=== PATIENT | male | born 1985 | race Caucasian/White ===

== ENCOUNTER 2023-12-02 12:33 | Inpatient (IN) | payer BC, SELFPAY ==
[2023-12-02] VITALS (14 sets, daily range): BP systolic 140–210; BP diastolic 76–106; PULSE 112–129; RESP 16–29; TEMP 36.6–37.2; O2SAT 98–100; BMI 33.7
--- NOTE | ~2023-12-02 | CT_ITS ---
EXAMINATION: CT abdomen pelvis w con DATE: 12/02/2023 15:23 INDICATION: Left lower quadrant abdominal pain TECHNIQUE: Computed tomography (CT) of the abdomen and pelvis was performed with 100 mL Omnipaque-350 intravenous contrast. Automated exposure control and iterative reconstruction technique were employe d. The dose-length product was 1294.79 mGy-cm. COMPARISON: None. FINDINGS: Lower thorax: Unremarkable Liver: Enlarged. Fatty infiltrated. Biliary/Gallbladder: Gallbladder is normal. No bile duct dilation. Pancreas: Fluid and fat stranding surrounding the pancreas. Spleen: Normal. Adrenals:No mass. Kidneys: No suspicious mass, obstructing stone, or hydronephrosis. GI tract: No small or large bowel dilation. Normal appendix. Diverticulosis without diverticulitis. Mesentery/Peritoneum: No mass or free air. Upper abdominal and peripancreatic mesenteric stranding wi th fluid extending along the anterior leaflet of the left lateral conal fascia. Prominent upper abdom inal mesenteric lymph nodes. Retroperitoneum: No mass. Pelvis: Pelvic organs are within normal limits. Soft Tissues: Soft tissues and body wall unremarkable. Bones: No acute osseous finding. IMPRESSION: Hepatomegaly with steatosis. Acute interstitial pancreatitis. Reviewed, dictated and finalized at location K.
[2023-12-02 13:06] LABS: Basophils Absolute Auto 0.1 K/mm3 (0.0-0.1); Basophils Percent Auto 0.5 % (0.2-1.2); Hematocrit 44.8 % (42.0-52.0); Hemoglobin 15.8 g/dL (14.0-18.0); Immature Granulocyte Absolute 0.24 K/mm3 (0.00-0.031); Immature Granulocyte Percent A 1.6 % (0-0.5); Lymphocytes Absolute Auto 2.01 K/mm3 (0.9-3.2); Lymphocytes Percent Auto 13.2 % (18.3-44.2); Mean Corpuscular HGB Conc 35.3 g/dl (32-36); Mean Corpuscular Hemoglobin 32.1 pg (26-34); Mean Corpuscular Volume 91.1 fl (80-100); Mean Platelet Volume 11.5 fl (7.4-10.4); Monocytes Absolute Auto 1.6 K/mm3 (0.1-0.6); Monocytes Percent Auto 10.6 % (2.6-8.5); Neutrophils Absolute Auto 11.3 K/mm3 (1.3-6.7); Neutrophils Percent Auto 74.1 % (45.5-73.1); Platelet Count Result 160 k/mm3 (150-375); Red Blood Count 4.92 M/mm3 (4.6-6.20); Red Cell Distribution Width 12.9 % (11.5-14.5); White Blood Count 15.3 K/mm3 (4.5-10.0)
[2023-12-02] MEDS: ONDANSETRON INJ 4 MG/2 ML VIAL IV PUSH (14:15)
[2023-12-02] MEDS: SODIUM CHLORIDE 0.9% IV 2,000 ML 999 ML IV CONT (14:16)
[2023-12-02 14:27] LABS: Add Urine Microscopic? YES; Appearance Urine Cloudy (Clear); Bacteria Urine None Seen /hpf; Bilirubin Urine Negative (Negative); Blood Urine 2+ (Negative); Color Urine Yellow (Yellow); Glucose Urine UA 3+ mg/dL (Negative); Ketones Urine 4+ mg/dL (Negative); Leukocyte Esterase Ur Negative LEU/UL (Negative); Need Manual Microscopic Reviewed; Nitrate Urine Negative (Negative); Non Pathogenic Casts >20; Protein Urine 3+ mg/dL (Negative); Specific Grav Ur 1.035 (1.001-1.035); Squamous Epithelial Cell Urine Occasional /hpf (Few); WBC Urine 0-5 /hpf (0-3); pH Urine 5.5 (5.0-9.0)
[2023-12-02 15:20] LABS: Estimated CRCL calculation 144 ml/min; Estimated Glomerular Filt Rate > 60
[2023-12-02 15:49] LABS: Alanine Aminotransferase 44 U/L (6-50); Albumin Level 4.6 g/dL (3.5-5.1); Alkaline Phosphatase 109 U/L (38-126); Aspartate Amino Transferase 27 U/L (17-59); Bilirubin,Total 1.1 mg/dL (0.2-1.3); Blood Urea Nitrogen 13 mg/dL (9-20); Calcium 11.3 mg/dL (8.4-10.2); Carbon Dioxide < 5 mmol/L (22-30); Chloride 99 mmol/L (98-107); Estimated CRCL calculation 117 ml/min; Estimated Glomerular Filt Rate > 60; Glucose 404 mg/dL (65-110); Lipase 518 U/L (23-300); Potassium 5.4 mmol/L (3.4-5.0); Sodium 130 mmol/L (137-145)
[2023-12-02 16:26] LABS: Fractional Inspired Oxygen 21 %; HCO3 VBG 6.5 mEq/l (24.0-30.0); PO2 VBG 85.5 mmHg (35.0-45.0)
[2023-12-02 16:32] LABS: Device ROOM AIR; PCO2 VBG 15.2 mmHg (42.0-48.0); pH VBG 7.246 (7.300-7.400)
[2023-12-02 16:41] LABS: Lactic Acid Reflex 1.1 mmol/L (0.7-2.0)
[2023-12-02] MEDS: SODIUM CHLORIDE 0.9% IV 1,000 ML 999 ML IV CONT (16:42)
--- NOTE | 2023-12-02 17:18 | ED.ABDPAIN ---
HPI - Abdominal Pain General Chief Complaint: Abdominal Pain Stated Complaint: abd pain Time Seen by Provider: 12/02/23 13:07 History of Present Illness HPI narrative: This is a 38-year-old male, with no known significant past medical history, presents to the emergency department complaining of epigastric abdominal pain described as sharp burning for the past 2 days. He states this radiates somewhat to the left lower abdomen that was not associated with any nausea or vomiting. He states he had a normal appearing stool 2 days ago with some bright red blood but has not had any bleeding since then. Yesterday, he states he had a fever of 100.8. He denies any known sick contacts recent travel. He denies dysuria, urinary frequency, cough, chest pain or loss of consciousness. Related Data Home Medications Medication Instructions Recorded Confirmed No Home Medications 12/02/23 12/02/23 Allergies Allergy/AdvReac Type Severity Reaction Status Date / Time No Known Allergies Allergy Verified 12/02/23 12:43 Review of Systems Review of Systems: All systems reviewed & are unremarkable except as noted in HPI and below PMFSH Past Medical History Medical History Hypertension Surgical History Surgical History No significant past surgical history Family History Family History Father Hypertension Mother Hypertension Sibling Asthma Patient's brother is in good health Social History Social History Smoking status: Current every day smoker Tobacco type: e-cigarettes/vaping Second hand tobacco smoke exposure: Yes Alcohol intake: current Substance use: never Do You Feel Safe in your Home?: Yes Lack of Transportation: No Lack of Food: Never True Current Housing: I Have Housing Concerned About Future Housing: No Difficulty Paying Gas/Electric Bills: No Difficulty Paying for Meds: No Currently Unemployed: No Education: High School Diploma/GED Difficulty w/ Childcare or Family Care: No Spiritual care concerns: No Exam Narrative: GENERAL: Well-developed, well-nourished, and in no acute distress. Appears uncomfortable HEAD: Normocephalic, atraumatic. EYES: PERRLA and EOMI. CHEST: Tachypneic Clear to auscultation. No respiratory distress. No wheezes rales or rhonchi HEART: Regular rate and rhythm. No murmur heard. Normal peripheral pulses. ABDOMEN: Soft, tender palpation in the epigastrium and left lower quadrant, nondistended, normal active bowel sounds. No CVA tenderness to palpation EXTREMITIES: Normal range of motion. No edema. SKIN: Warm, dry, no rash. NEURO: Alert and oriented x3. No focal deficit. Moving all 4 limbs spontaneously PSYCH: Normal mood and affect. Course Course Emergency Course: 17:30 - White blood cell count elevated to 15, CBC otherwise unremarkable. Chemistries demonstrate sodium of 130, bicarb less than 5 and elevated glucose of 404. ABG demonstrates changes consistent with metabolic acidosis with a pH of 7.246, bicarb of 6.5 and pCO2 of 15.2. Lactic acid within normal limits at 1.1. UA demonstrates ketones concerning for kidney area. Beta hydroxybutyrate pending. I suspect DKA. Comments from lab regarding the patient's blood work (which were delayed) included a like hemic appearance. I suspect hypertriglyceridemia, likely causing the patient's pancreatitis and contributing to his DKA. The patient was started on insulin drip and given 3 L of IV fluid. On re-evaluation, the patient states his abdominal pain is improved after pain medications. I discussed the patient with inspector grain mill products, Dr. Reyez and hospitalist YARD FOREMAN Logan who accept admission to ICU. Vital Signs Vital signs: Vital Signs Temperature 98 F 12/02/23 12:36 Pulse Rate 129 H 08
[2023-12-02] MEDS: INSULIN HUMAN REGULAR (*BKC) 100 UNITS/ML 17 UNITS IV PUSH (17:31)
[2023-12-02 17:39] LABS: Glucose Point of Care 308 mg/dl (65-105)
[2023-12-02] MEDS: INSULIN HUMAN REGULAR (*BKC) 100 UNITS in SODIUM CHLORIDE 0.9% IV 99 ML 11.5 UNITS IV CONT (17:45)
[2023-12-02] MEDS: SODIUM CHLORIDE 0.9% IV 1,000 ML 150 ML IV CONT (17:46)
[2023-12-02 18:01] LABS: LDL Cholesterol Direct 192 mg/dL
[2023-12-02 18:45] LABS: Glucose Point of Care 191 mg/dl (65-105)
[2023-12-02] MEDS: DEXTROSE 5%/0.45% SOD CHL 1,000 ML 150 ML IV CONT (18:49)
--- NOTE | 2023-12-02 19:00 | PC.NURSE ---
This patient, Alexis Dowell, was admitted to Intensive Care Unit-3. Patient/family oriented to hospital policies and general routines including ID bracelet, bed and alarms, visiting hours, pain management, procedures, bathroom and other care routines, personal items, smoking policy, room service/diet, and visiting hours. Information on how to activate the Rapid Response Team has been discussed. Patient/Family are encouraged to report perceived risks to care and to ask questions if they do not understand what they are told or what they should do.
[2023-12-02 19:14] LABS: Triglycerides > 2625 mg/dL (<150)
[2023-12-02 19:37] LABS: Cholesterol 545 mg/dL (0-200)
--- NOTE | 2023-12-02 19:38 | PM.IMHP ---
H&P: HPI History of Present Illness Date/Time: 12/02/23 19:38 Chief Complaint: Abdominal pain Narrative: This is a 38-year-old male with no significant past medical history except for chronic alcohol use presents to the as abdominal pain sharp burning in quality since Friday. Somewhat radiated to bilateral lumbar area not associated with nausea and vomiting. He noted that to go he had constipated stool with some bright red blood around the stool. Also reported some fever to the ER complaints. He reports drinking heavily on Friday noted to be tachycardic in 1 teens to 120s. WBC count 15.3 hemoglobin 60. Dialysis was negative for UTI laboratory studies showed hyponatremia 130 hyperkalemia 5.4 carbon dioxide less than 5 404 calcium of 11.3 left TS within normal limit. Lipase level was elevated at 508 7.24/15/85/6.5. Abdominal pelvis CT scan was done which showed hepatomegaly with steatosis and acute interstitial pancreatitis. He was diagnosed with acute pancreatitis and acute DKA. Patient has been started on IV fluids with insulin drip. He is admitted to ICU in the setting. He reports he has been feeling better Since arrival to the ED. Review of Systems Review of Systems: - CONSTITUTIONAL: Denies weight loss, fever and chills. - HEENT: Denies changes in vision and hearing - RESPIRATORY: Denies SOB and cough. - CV: Denies palpitations and CP. - GI: Reports abdominal pain, denies nausea, vomiting and diarrhea. - : Denies dysuria and urinary frequency. - MSK: Denies myalgia and joint pain. - SKIN: Denies rash and pruritus. - NEUROLOGICAL: Denies headache and syncope. - PSYCHIATRIC: Denies recent changes in mood. Denies anxiety and depression. [facility] Family History Family History (Updated 11/24/15 @ 23:21 by DOCTOR UNKNOWN) Father Hypertension Mother Hypertension Sibling Asthma Patient's brother is in good health Social History Social History Smoking status: Current every day smoker Tobacco type: e-cigarettes/vaping Second hand tobacco smoke exposure: Yes Alcohol intake: current Meds Home Medications and Allergies Home Medications Medication Instructions Recorded Confirmed Type No Home Medications 12/02/23 12/02/23 History Allergies Allergy/AdvReac Type Severity Reaction Status Date / Time No Known Allergies Allergy Verified 12/02/23 12:43 Vital Signs Vital Signs - 24 hr 12/02/23 12:36 12/02/23 12:43 12/02/23 12:47 Temperature 98 F 98.6 F Pulse Rate 129 H 120 H 119 H Respiratory Rate 18 24 H 25 H Blood Pressure 143/91 H 164/97 H 164/97 H Pulse Oximetry 100 100 100 Oxygen Delivery Room Air Room Air 12/02/23 15:39 12/02/23 16:42 12/02/23 17:48 Temperature Pulse Rate 116 H 119 H 118 H Respiratory Rate 16 28 H 28 H Blood Pressure 174/92 H 140/106 H 154/76 H Pulse Oximetry 100 100 99 Oxygen Delivery 12/02/23 19:05 Temperature 98.8 F Pulse Rate 123 H Respiratory Rate 24 H Blood Pressure 152/81 H Pulse Oximetry 98 Oxygen Delivery H&P: Results Labs Labs: Short CBC 12/02/23 Range/Units 12:59 WBC 15.3 H (4.5-10.0) K/mm3 Hgb 15.8 (14.0-18.0) g/dL Hct 44.8 (42.0-52.0) % Plt Count 160 (150-375) k/mm3 BMP 12/02/23 12/02/23 15:04 15:17 Sodium 130 L Potassium 5.4 H Chloride 99 Carbon Dioxide < 5 L BUN 13 Creatinine 1.00 0.80 Glucose 404 H Calcium 11.3 H Liver Function 12/02/23 Range/Units 15:04 Total Bilirubin 1.1 (0.2-1.3) mg/dL AST 27 (17-59) U/L ALT 44 (6-50) U/L Alkaline Phosphatase 109 (38-126) U/L Albumin 4.6 (3.5-5.1) g/dL Urine 12/02/23 Range/Units 13:48 Urine Color Yellow (Yellow) Urine Appearance Cloudy H (Clear) Urine pH 5.5 (5.0-9.0) Ur Specific [place] 1.035 (1.001-1.035) Urine Protein 3+ H (Negative) mg/dL Urine Glucose (UA) 3+ H (Negative) mg/dL Assessment and Plan Assessment and plan (1) DK
[2023-12-02 20:51] LABS: Beta-Hydroxybutyrate/Acetoacetate 9.22 mmol/L (0.02-0.27)
[2023-12-02 21:08] LABS: Glucose Point of Care 257 mg/dl (65-105)
[2023-12-02 21:23] LABS: Blood Urea Nitrogen 11 mg/dL (9-20); Calcium 9.3 mg/dL (8.4-10.2); Carbon Dioxide < 5 mmol/L (22-30); Chloride 105 mmol/L (98-107); Estimated CRCL calculation 147 ml/min; Estimated Glomerular Filt Rate > 60; Glucose 232 mg/dL (65-110); Potassium 4.4 mmol/L (3.4-5.0); Sodium 132 mmol/L (137-145)
[2023-12-02] MEDS: CEFEPIME 2 GM/NS 50 ML 2 GM/50 ML BAG IVPB (21:26)
[2023-12-02] MEDS: hydrALAZINE HCL 20 MG/ML VIAL IV PUSH (21:27)
[2023-12-02] MEDS: MORPHINE SULFATE (*CRX) 2 MG/ML INJ IV PUSH (21:27)
[2023-12-02 21:49] LABS: Triglycerides 2257 mg/dL (<150)
[2023-12-02 22:07] LABS: Hemoglobin A1C > 14.0 % (<5.7)
[2023-12-02 22:17] LABS: Glucose Point of Care 294 mg/dl (65-105)
[2023-12-02 23:23] LABS: Glucose Point of Care 288 mg/dl (65-105)
[2023-12-03] VITALS (16 sets, daily range): BP systolic 127–186; BP diastolic 65–110; PULSE 98–138; RESP 16–30; TEMP 36.6–37.3; O2SAT 96–100
[2023-12-03 00:06] LABS: Glucose Point of Care 278 mg/dl (65-105)
[2023-12-03 01:07] LABS: Glucose Point of Care 252 mg/dl (65-105)
[2023-12-03] MEDS: DEXTROSE 5%/0.45% SOD CHL 1,000 ML 150 ML IV CONT (01:13)
[2023-12-03 02:08] LABS: Glucose Point of Care 281 mg/dl (65-105)
[2023-12-03 03:06] LABS: Glucose Point of Care 284 mg/dl (65-105)
[2023-12-03] MEDS: MORPHINE SULFATE (*CRX) 2 MG/ML INJ IV PUSH ×4 (04:09→19:27)
[2023-12-03 04:12] LABS: Basophils Absolute Auto 0.1 K/mm3 (0.0-0.1); Basophils Percent Auto 0.6 % (0.2-1.2); Eosinophils Percent Auto 0.2 % (0-4.4); Hematocrit 39.1 % (42.0-52.0); Immature Granulocyte Absolute 0.15 K/mm3 (0.00-0.031); Immature Granulocyte Percent A 1.2 % (0-0.5); Lymphocytes Percent Auto 11.4 % (18.3-44.2); Mean Corpuscular HGB Conc 33.2 g/dl (32-36); Mean Corpuscular Hemoglobin 31.2 pg (26-34); Mean Corpuscular Volume 93.8 fl (80-100); Mean Platelet Volume 11.2 fl (7.4-10.4); Monocytes Absolute Auto 1.3 K/mm3 (0.1-0.6); Monocytes Percent Auto 10.9 % (2.6-8.5); Neutrophils Absolute Auto 9.3 K/mm3 (1.3-6.7); Neutrophils Percent Auto 75.7 % (45.5-73.1); Platelet Count Result 128 k/mm3 (150-375); Red Blood Count 4.17 M/mm3 (4.6-6.20); White Blood Count 12.2 K/mm3 (4.5-10.0)
[2023-12-03 04:20] LABS: Glucose Point of Care 259 mg/dl (65-105)
[2023-12-03 04:56] LABS: Anion Gap 23 mmol/L (4-12); Blood Urea Nitrogen 9 mg/dL (9-20); Carbon Dioxide 7 mmol/L (22-30); Chloride 103 mmol/L (98-107); Estimated CRCL calculation 165 ml/min; Estimated Glomerular Filt Rate > 60; Glucose 266 mg/dL (65-110); Sodium 133 mmol/L (137-145)
[2023-12-03 05:08] LABS: Triglycerides 1786 mg/dL (<150)
[2023-12-03 05:20] LABS: Glucose Point of Care 251 mg/dl (65-105)
[2023-12-03 06:08] LABS: Glucose Point of Care 264 mg/dl (65-105)
[2023-12-03 07:02] LABS: Glucose Point of Care 244 mg/dl (65-105)
[2023-12-03] MEDS: INSULIN HUMAN REGULAR (*BKC) 100 UNITS in SODIUM CHLORIDE 0.9% IV 99 ML 10 UNITS IV CONT ×2 (07:07→15:36)
[2023-12-03] MEDS: KCL 20 MEQ/D5/0.45% SOD CHL 1,000 ML 150 ML IV CONT ×3 (07:48→20:30)
[2023-12-03] MEDS: LACTATED RINGERS 1,000 ML 999 ML IV CONT (08:01)
[2023-12-03 08:06] LABS: Glucose Point of Care 223 mg/dl (65-105)
[2023-12-03] MEDS: ENOXAPARIN 40 MG/0.4 ML SYRINGE SUB-Q (08:16)
--- NOTE | 2023-12-03 09:00 | WPDCNINT ---
Assessment and Plan Assessment and plan (1) DKA (diabetic ketoacidosis): Qualifiers: Diabetes mellitus complication detail: without coma Diabetes mellitus type: other specified (including ESTEBAN) Qualified Code(s): E13.10 - Other specified diabetes mellitus with ketoacidosis without coma Code(s): E11.10 - Type 2 diabetes mellitus with ketoacidosis without coma Status: Acute Assessment and Plan: Patient presented with epigastric pain, nausea, vomiting. Anion gap metabolic acidosis, elevated blood sugars, elevated beta hydroxybutyrate. Patient was diagnosed with DKA and new onset diabetes. -received 3 L of IV fluid bolus in the ER, started on insulin infusion a DKA protocol -patient remains on insulin infusion, as his anion gap has not closed remains significantly acidotic. -will give additional IV fluid bolus this morning as he is still making a lot of urine. (2) Acute pancreatitis: Qualifiers: Acute pancreatitis complication: unspecified Pancreatitis type: unspecified pancreatitis type Qualified Code(s): K85.90 - Acute pancreatitis without necrosis or infection, unspecified Code(s): K85.90 - Acute pancreatitis without necrosis or infection, unspecified Status: Acute Assessment and Plan: Acute pancreatitis likely related to alcohol and hypertriglyceridemia -patient has received adequate have not of IV fluids, remains on maintenance IV fluids -pain control with morphine (3) Hypertriglyceridemia: Code(s): E78.1 - Pure hyperglyceridemia Status: Acute Assessment and Plan: Hypertriglyceridemia which may be causing the pancreatitis to along with alcohol use -adequately fluid-resuscitated, triglyceride levels trending down -continue insulin infusion for now (4) New onset type 1 diabetes mellitus, uncontrolled: Status: Acute Assessment and Plan: New onset diabetes -hemoglobin A1c > 14 on this admission -will have asthma educator and dietitian evaluate the patient -currently on insulin infusion, will transition to long-acting insulin and sliding scale insulin once his anion gap closes (5) Electrolyte imbalance: Code(s): E87.8 - Other disorders of electrolyte and fluid balance, not elsewhere classified Status: Acute Assessment and Plan: Patient was hyponatremic likely related to pseudohyponatremia -hyperkalemia secondary to acidosis which has resolved -continue to monitor electrolytes (6) Alcohol abuse: Code(s): F10.10 - Alcohol abuse, uncomplicated Status: Acute Assessment and Plan: Patient states he drinks about 8 beers a day -have counseled patient on cessation of alcohol abuse which probably is also cause of his pancreatitis -patient stated that he is going to quit alcohol all that is going on this admission Plan DVT prophylaxis: Lovenox Stress ulcer prophylaxis: Not indicated Nutrition: NPO except ice chips Code Status: Full code Critical Care Time Spent: 49 minutes Due to a high probability of clinically significant, life threatening deterioration, the patient required my highest level of preparedness to intervene emergently and I personally spent this critical care time directly and personally managing the patient. This critical care time included obtaining a history; examining the patient; pulse oximetry; ordering and review of studies; arranging urgent treatment with development of a management plan; evaluation of patient's response to treatment; frequent reassessment; and discussions with other providers. It was exclusive of separately billable procedures and treating other patients and teaching time. Please see Assessment and Plan section and the rest of the note for further information on patient assessment and treatment This dictation may have been done utilizing a voice recognition system. Attempts have been made to correct errors. However, there may be uncorrected grammatical, spelling, and re
[2023-12-03 09:05] LABS: Glucose Point of Care 236 mg/dl (65-105)
[2023-12-03 10:26] LABS: Glucose Point of Care 239 mg/dl (65-105)
[2023-12-03 10:42] LABS: Anion Gap 18 mmol/L (4-12); Blood Urea Nitrogen 9 mg/dL (9-20); Calcium 8.7 mg/dL (8.4-10.2); Carbon Dioxide 10 mmol/L (22-30); Chloride 104 mmol/L (98-107); Estimated CRCL calculation 190 ml/min; Estimated Glomerular Filt Rate > 60; Glucose 237 mg/dL (65-110); Potassium 4.1 mmol/L (3.4-5.0); Sodium 132 mmol/L (137-145)
[2023-12-03 11:04] LABS: Glucose Point of Care 228 mg/dl (65-105)
--- NOTE | 2023-12-03 11:17 | PCFNICU ---
ICU Rounding Note: Pt current nutrition is NPO. Last recorded weight is 118.4 kg Bowel Motility:Last reported BM 11/29 Labs Reviewed:TG 1786,Glu 266, Na 133, Hct 39.1, Hgb 13.0, HbA1c >14% Meds Noted:Insulin Drip, Lovenox, Dextrose 5% Skin: WNL Additional Notes: Patient in with DKA/Acute Pancreatitis. Diet order: NPO. Nursing reporting during ICU rounds up to 8 beers daily. Recommend CC diet when diet order advanced. Tarring Machine Operator consulted. Following daily in ICU rounds.
[2023-12-03 12:16] LABS: Glucose Point of Care 212 mg/dl (65-105)
[2023-12-03 12:54] LABS: Anion Gap 17 mmol/L (4-12); Blood Urea Nitrogen 8 mg/dL (9-20); Calcium 8.7 mg/dL (8.4-10.2); Carbon Dioxide 11 mmol/L (22-30); Chloride 105 mmol/L (98-107); Estimated CRCL calculation 190 ml/min; Estimated Glomerular Filt Rate > 60; Glucose 223 mg/dL (65-110); Sodium 133 mmol/L (137-145)
--- NOTE | 2023-12-03 13:18 | PM.IMPN ---
Progress Note: A&P Assessment and Plan (1) Electrolyte imbalance: Code(s): E87.8 - Other disorders of electrolyte and fluid balance, not elsewhere classified Status: Acute Assessment and Plan: Watch potassium bmp Pt has not eaten for days will add banana bag thiamine and folic acid (2) New onset type 1 diabetes mellitus, uncontrolled: Status: Acute Assessment and Plan: Hbaic is over 14 Continue DKA Proctol once gap closes can start lantus (3) Epigastric abdominal pain: Code(s): R10.13 - Epigastric pain Status: Acute Assessment and Plan: Secondary to pancreatitis (4) Alcohol abuse: Code(s): F10.10 - Alcohol abuse, uncomplicated Status: Acute Assessment and Plan: pt drinks heavily 6-8 beers per day Order ciwa Order clonidine patch Pt is tachycardic with high bp today (5) Acute pancreatitis: Qualifiers: Acute pancreatitis complication: unspecified Pancreatitis type: unspecified pancreatitis type Qualified Code(s): K85.90 - Acute pancreatitis without necrosis or infection, unspecified Code(s): K85.90 - Acute pancreatitis without necrosis or infection, unspecified Status: Acute Assessment and Plan: Watch lipase levels Keep npo with iv fluids (6) DKA (diabetic ketoacidosis): Qualifiers: Diabetes mellitus complication detail: without coma Diabetes mellitus type: other specified (including ESTEBAN) Qualified Code(s): E13.10 - Other specified diabetes mellitus with ketoacidosis without coma Code(s): E11.10 - Type 2 diabetes mellitus with ketoacidosis without coma Status: Acute Assessment and Plan: DKA protocol (7) Hypertriglyceridemia: Code(s): E78.1 - Pure hyperglyceridemia Status: Acute Assessment and Plan: Start statin and fibrates once tolerating diet Insulin infusion helps triglyceride levels Subjective Date/time seen: 12/03/23 13:18 Interval history: 38-year-old male with no significant past medical history except for chronic alcohol use presents to the as abdominal pain sharp burning in quality since Friday. Somewhat radiated to bilateral lumbar area not associated with nausea and vomiting. He noted that to go he had constipated stool with some bright red blood around the stool. Also reported some fever to the ER complaints. He reports drinking heavily on Friday noted to be tachycardic in 1 teens to 120s. Pt admitted for pancreatitis, DKA and has history of alcohol abuse Pt likes to drink 6-8 beers a day Pt is on a insulin drip long discussion with at the bedside Continue insulin watch gap Pt is currently npo watch sugars carefully Review of Systems Review of Systems: pt is tired and sleepy Exam Narrative: GENERAL: Well-developed, well-nourished, and in no acute distress. Appears uncomfortable HEAD: Normocephalic, atraumatic. EYES: PERRLA and EOMI. CHEST: Tachypneic Clear to auscultation. No respiratory distress. No wheezes rales or rhonchi HEART: Regular rate and rhythm. No murmur heard. Normal peripheral pulses. ABDOMEN: Soft, tender palpation in the epigastrium and left lower quadrant, nondistended, normal active bowel sounds. No CVA tenderness to palpation EXTREMITIES: Normal range of motion. No edema. SKIN: Warm, dry, no rash. NEURO: Alert and oriented x3. No focal deficit. Moving all 4 limbs spontaneously PSYCH: Normal mood and affect. Objective Data Vital Signs Vital Signs: Vital Signs - 24 hr 12/02/23 15:39 12/02/23 16:42 12/02/23 17:48 Temperature Pulse Rate 116 H 119 H 118 H Respiratory Rate 16 28 H 28 H Blood Pressure 174/92 H 140/106 H 154/76 H Pulse Oximetry 100 100 99 Oxygen Delivery 12/02/23 19:05 12/02/23 20:21 12/02/23 19:30 Temperature 37.1 C 37.1 C 37.2 C Pulse Rate 123 H 113 H 117 H Respiratory Rate 24 H 24 H 29 H Blood Pressure 152/81 H 180/86 H 201/94 H Pulse Oximetry 9
[2023-12-03 14:06] LABS: Glucose Point of Care 201 mg/dl (65-105)
[2023-12-03] MEDS: THIAMINE HCL 200 MG/2 ML VIAL (15:22)
[2023-12-03 15:31] LABS: Glucose Point of Care 206 mg/dl (65-105)
[2023-12-03 16:08] LABS: Glucose Point of Care 212 mg/dl (65-105)
[2023-12-03 17:16] LABS: Glucose Point of Care 224 mg/dl (65-105)
[2023-12-03 18:18] LABS: Glucose Point of Care 224 mg/dl (65-105)
[2023-12-03 19:17] LABS: Glucose Point of Care 213 mg/dl (65-105)
[2023-12-03] MEDS: cloNIDine 0.1 MG/24 HR PATCH 1 PATCH TRANSDERM (20:31)
[2023-12-03 20:40] LABS: Triglycerides 1167 mg/dL (<150)
[2023-12-03 21:01] LABS: Glucose Point of Care 239 mg/dl (65-105)
[2023-12-03 22:00] LABS: Glucose Point of Care 250 mg/dl (65-105)
[2023-12-03 22:56] LABS: Glucose Point of Care 232 mg/dl (65-105)
[2023-12-04] VITALS (23 sets, daily range): BP systolic 129–184; BP diastolic 68–103; PULSE 100–115; RESP 17–27; TEMP 36.8–37.6; O2SAT 95–99; BMI 33.5
[2023-12-04 00:06] LABS: Glucose Point of Care 223 mg/dl (65-105)
[2023-12-04] MEDS: INSULIN HUMAN REGULAR (*BKC) 100 UNITS in SODIUM CHLORIDE 0.9% IV 99 ML 10 UNITS IV CONT (01:01)
[2023-12-04 01:03] LABS: Glucose Point of Care 213 mg/dl (65-105)
[2023-12-04] MEDS: MORPHINE SULFATE (*CRX) 2 MG/ML INJ IV PUSH ×2 (01:33→09:27)
[2023-12-04 02:04] LABS: Glucose Point of Care 225 mg/dl (65-105)
[2023-12-04] MEDS: KCL 20 MEQ/D5/0.45% SOD CHL 1,000 ML 150 ML IV CONT ×2 (02:27→09:10)
[2023-12-04 02:59] LABS: Glucose Point of Care 220 mg/dl (65-105)
[2023-12-04 04:02] LABS: Glucose Point of Care 203 mg/dl (65-105)
[2023-12-04 04:55] LABS: Basophils Absolute Auto 0.1 K/mm3 (0.0-0.1); Basophils Percent Auto 0.5 % (0.2-1.2); Eosinophils Absolute Auto 0.3 K/mm3 (0-0.3); Eosinophils Percent Auto 3.1 % (0-4.4); Hematocrit 35.4 % (42.0-52.0); Hemoglobin 12.2 g/dL (14.0-18.0); Immature Granulocyte Absolute 0.15 K/mm3 (0.00-0.031); Immature Granulocyte Percent A 1.4 % (0-0.5); Immature Platelet Fraction Pct 6.4 % (0.9-11.2); Lymphocytes Absolute Auto 1.67 K/mm3 (0.9-3.2); Lymphocytes Percent Auto 15.4 % (18.3-44.2); Mean Corpuscular HGB Conc 34.5 g/dl (32-36); Mean Corpuscular Hemoglobin 30.7 pg (26-34); Mean Corpuscular Volume 88.9 fl (80-100); Mean Platelet Volume 11.2 fl (7.4-10.4); Monocytes Absolute Auto 1.2 K/mm3 (0.1-0.6); Monocytes Percent Auto 11.2 % (2.6-8.5); Neutrophils Absolute Auto 7.4 K/mm3 (1.3-6.7); Neutrophils Percent Auto 68.4 % (45.5-73.1); Platelet Count Result 136 k/mm3 (150-375); Red Blood Count 3.98 M/mm3 (4.6-6.20); Red Cell Distribution Width 13.1 % (11.5-14.5); White Blood Count 10.9 K/mm3 (4.5-10.0)
[2023-12-04 05:07] LABS: Prothrombin Time 13.5 Seconds (11.1-14.7)
[2023-12-04 05:12] LABS: Glucose Point of Care 211 mg/dl (65-105)
[2023-12-04 05:15] LABS: Lactic Acid Reflex 0.9 mmol/L (0.7-2.0)
[2023-12-04 05:17] LABS: Alanine Aminotransferase 36 U/L (6-50); Albumin Level 3.4 g/dL (3.5-5.1); Alkaline Phosphatase 81 U/L (38-126); Anion Gap 9 mmol/L (4-12); Aspartate Amino Transferase 47 U/L (17-59); Bilirubin,Total 0.7 mg/dL (0.2-1.3); Blood Urea Nitrogen 6 mg/dL (9-20); Calcium 8.6 mg/dL (8.4-10.2); Carbon Dioxide 18 mmol/L (22-30); Chloride 106 mmol/L (98-107); Estimated CRCL calculation 190 ml/min; Estimated Glomerular Filt Rate > 60; Glucose 209 mg/dL (65-110); Phosphorus 1.4 mg/dL (2.5-4.5); Potassium 3.5 mmol/L (3.4-5.0); Sodium 133 mmol/L (137-145)
[2023-12-04 05:22] LABS: Lipase 3991 U/L (23-300); Triglycerides 804 mg/dL (<150)
[2023-12-04 06:00] LABS: Partial Thromboplastin Time 22.3 Seconds (22.3-36.8)
[2023-12-04 06:09] LABS: Glucose Point of Care 230 mg/dl (65-105)
[2023-12-04 06:56] LABS: Glucose Point of Care 210 mg/dl (65-105)
[2023-12-04 08:38] LABS: Glucose Point of Care 200 mg/dl (65-105)
[2023-12-04] MEDS: DEXTROSE 5%/0.45% SOD CHL 1,000 ML 150 ML IV CONT (08:43)
[2023-12-04] MEDS: POTASSIUM PHOS,M-BASIC-D-BASIC 20 MMOL in SODIUM CHLORIDE 0.9% IV 250 ML 64.17 MMOL IVPB (09:08)
[2023-12-04] MEDS: LACTATED RINGERS 1,000 ML 999 ML IV CONT (09:09)
[2023-12-04] MEDS: ENOXAPARIN 40 MG/0.4 ML SYRINGE SUB-Q (09:11)
[2023-12-04 09:25] LABS: Glucose Point of Care 222 mg/dl (65-105)
--- NOTE | 2023-12-04 09:58 | WPDINTPN ---
Progress Note: A&P Assessment and Plan (1) DKA (diabetic ketoacidosis): Qualifiers: Diabetes mellitus complication detail: without coma Diabetes mellitus type: other specified (including ESTEBAN) Qualified Code(s): E13.10 - Other specified diabetes mellitus with ketoacidosis without coma Code(s): E11.10 - Type 2 diabetes mellitus with ketoacidosis without coma Status: Acute Assessment and Plan: Patient presented with epigastric pain, nausea, vomiting. Anion gap metabolic acidosis, elevated blood sugars, elevated beta hydroxybutyrate. Patient was diagnosed with DKA and new onset diabetes. -received 3 L of IV fluid bolus in the ER, started on insulin infusion a DKA protocol -will give additional IV fluid bolus today 12/04/2023 -and iron gap has closed, will transition to long-acting insulin and sliding scale insulin -will start clear liquid diet for now given pancreatitis (2) Acute pancreatitis: Qualifiers: Acute pancreatitis complication: unspecified Pancreatitis type: unspecified pancreatitis type Qualified Code(s): K85.90 - Acute pancreatitis without necrosis or infection, unspecified Code(s): K85.90 - Acute pancreatitis without necrosis or infection, unspecified Status: Acute Assessment and Plan: Acute pancreatitis likely related to alcohol and hypertriglyceridemia -will give additional IV fluids and start maintenance IV fluids -lipase trending up will continue to monitor -pain control with morphine -appreciate GI evaluation and recommendations (3) Hypertriglyceridemia: Code(s): E78.1 - Pure hyperglyceridemia Status: Acute Assessment and Plan: Hypertriglyceridemia which may be causing the pancreatitis to along with alcohol use -adequately fluid-resuscitated, triglyceride levels trending down -will start fenofibrate (4) New onset type 1 diabetes mellitus, uncontrolled: Status: Acute Assessment and Plan: New onset diabetes -hemoglobin A1c > 14 on this admission -will have informatics educator and dietitian evaluate the patient -will transition to long-acting insulin and sliding scale insulin (5) Electrolyte imbalance: Code(s): E87.8 - Other disorders of electrolyte and fluid balance, not elsewhere classified Status: Acute Assessment and Plan: Will replace phosphorus Magnesium and potassium within normal limits (6) Alcohol abuse: Code(s): F10.10 - Alcohol abuse, uncomplicated Status: Acute Assessment and Plan: Patient states he drinks about 8 beers a day -have counseled patient on cessation of alcohol abuse which probably is also cause of his pancreatitis -patient stated that he is going to quit alcohol all that is going on this admission -monitor for alcohol withdrawal Plan DVT prophylaxis: Lovenox Stress ulcer prophylaxis: Not indicated Nutrition: NPO except ice chips Code Status: Full code Critical Care Time Spent: 35 minutes Discussed with patient and his and updated them with his condition and plan of care. Due to a high probability of clinically significant, life threatening deterioration, the patient required my highest level of preparedness to intervene emergently and I personally spent this critical care time directly and personally managing the patient. This critical care time included obtaining a history; examining the patient; pulse oximetry; ordering and review of studies; arranging urgent treatment with development of a management plan; evaluation of patient's response to treatment; frequent reassessment; and discussions with other providers. It was exclusive of separately billable procedures and treating other patients and teaching time. Please see Assessment and Plan section and the rest of the note for further information on patient assessment and treatment This dictation may have been done utilizing a voice recognition system. Attempts have been made to correct errors. Loyda
--- NOTE | 2023-12-04 10:03 | P.CONGI_ITS ---
I, Scott Suresh MD, have provided a substantive portion of the care of this patient and discussed the patient with my Nurse Practitioner. I have reviewed any new relevant radiographic and laboratory results including medications. I agree with her documentation as noted below.?I personally performed the medical decision making and much of the history and exam for this encounter. briefly, he has not seen a physician for over 5 years and normally drinks up to 12 beers daily. He is here with new onset of abdominal pain, found to have new diagnosis of DKA with diabetes mellitus, also pancreatitis (confirmed by abnormal lipase and CT scan), TG level 2600. Never had similar episode. Admitted to ICU for insulin drip in order to treat DKA, already feeling better, he is npo for now. Plan is to advance diet slowly, treat uncontrolled DM and close AG with insulin, also needs to stop drinking alcohol. Assessment and Plan Assessment and plan (1) Acute pancreatitis: Qualifiers: Acute pancreatitis complication: unspecified Pancreatitis type: unspecified pancreatitis type Qualified Code(s): K85.90 - Acute pancreatitis without necrosis or infection, unspecified Code(s): K85.90 - Acute pancreatitis without necrosis or infection, unspecified Status: Acute (2) Epigastric abdominal pain: Code(s): R10.13 - Epigastric pain Status: Acute (3) Hypertriglyceridemia: Code(s): E78.1 - Pure hyperglyceridemia Status: Acute (4) Alcohol abuse: Code(s): F10.10 - Alcohol abuse, uncomplicated Status: Acute (5) Hepatic steatosis: Code(s): K76.0 - Fatty (change of) liver, not elsewhere classified Status: Acute (6) DKA (diabetic ketoacidosis): Qualifiers: Diabetes mellitus complication detail: without coma Diabetes mellitus type: other specified (including ESTEBAN) Qualified Code(s): E13.10 - Other specified diabetes mellitus with ketoacidosis without coma Code(s): E11.10 - Type 2 diabetes mellitus with ketoacidosis without coma Status: Acute (7) Hematochezia: Code(s): K92.1 - Melena Status: Acute Plan 1. Epigastric abdominal pain/pancreatitis/ elevated lipase/ DKA/ hypertriglyceridemia /hepatic steatosis/ETOH abuse: Patient has never had an EGD. Patient admitted for acute pancreatitis and DKA. CT abdomen showed acute interstitial pancreatitis, hepatomegaly with steatosis, but no gallstones or ductal dilation. On admission triglycerides > 2625 levels today 804. On admission lipase 518 treading up to 3991 today but patient reports feeling better. Blood sugar on admission 404 and today 209. Patient admits to epigastric abdominal pain that he states started on Friday that he described as a constant burning / throbbing sensation that had no correlation with food intake. His epigastric pain has improved but not resolved. He denies any recent new medications prior to admission. Only new things he had been taking were multiple supplements recommended by his personal lines agent but the exact ingredients of these are unknown. Patient drinks 8-10 beers per day and the last time he drank was Friday. * Acute pancreatitis likely secondary to DKA and hypertriglyceridemia and or ETOH use as LFTs are normal and there are no signs of biliary ductal obstruction or dilation * no indication at this time for endoscopic evaluation or intervention * Continue to trend lipase and monitor symptoms * Currently NPO * Continue supportive care with pain management and antiemetics as needed * Primary care team to continue monitoring/treating hyperglycemia * For hepatic
--- NOTE | 2023-12-04 10:03 | WPDGICN ---
Assessment and Plan Assessment and plan (1) Acute pancreatitis: Qualifiers: Acute pancreatitis complication: unspecified Pancreatitis type: unspecified pancreatitis type Qualified Code(s): K85.90 - Acute pancreatitis without necrosis or infection, unspecified Code(s): K85.90 - Acute pancreatitis without necrosis or infection, unspecified Status: Acute (2) Epigastric abdominal pain: Code(s): R10.13 - Epigastric pain Status: Acute (3) Hypertriglyceridemia: Code(s): E78.1 - Pure hyperglyceridemia Status: Acute (4) Alcohol abuse: Code(s): F10.10 - Alcohol abuse, uncomplicated Status: Acute (5) Hepatic steatosis: Code(s): K76.0 - Fatty (change of) liver, not elsewhere classified Status: Acute (6) DKA (diabetic ketoacidosis): Qualifiers: Diabetes mellitus complication detail: without coma Diabetes mellitus type: other specified (including ESTEBAN) Qualified Code(s): E13.10 - Other specified diabetes mellitus with ketoacidosis without coma Code(s): E11.10 - Type 2 diabetes mellitus with ketoacidosis without coma Status: Acute (7) Hematochezia: Code(s): K92.1 - Melena Status: Acute Plan 1. Epigastric abdominal pain/pancreatitis/ elevated lipase/ DKA/ hypertriglyceridemia /hepatic steatosis/ETOH abuse: Patient has never had an EGD. Patient admitted for acute pancreatitis and DKA. CT abdomen showed acute interstitial pancreatitis, hepatomegaly with steatosis, but no gallstones or ductal dilation. On admission triglycerides > 2625 levels today 804. On admission lipase 518 treading up to 3991 today but patient reports feeling better. Blood sugar on admission 404 and today 209. Patient admits to epigastric abdominal pain that he states started on Friday that he described as a constant burning / throbbing sensation that had no correlation with food intake. His epigastric pain has improved but not resolved. He denies any recent new medications prior to admission. Only new things he had been taking were multiple supplements recommended by his personal lines account manager but the exact ingredients of these are unknown. Patient drinks 8-10 beers per day and the last time he drank was Friday. Acute pancreatitis likely secondary to DKA and hypertriglyceridemia and or ETOH use as LFTs are normal and there are no signs of biliary ductal obstruction or dilation no indication at this time for endoscopic evaluation or intervention Continue to trend lipase and monitor symptoms Currently NPO Continue supportive care with pain management and antiemetics as needed Primary care team to continue monitoring/treating hyperglycemia For hepatic steatosis, continued slow healthy weight loss, healthy eating, cholesterol control, blood sugar control, and exercise recommended after discharge Alcohol cessation recommended 2. Hematochezia: Patient reports trace hematochezia 2-3 days prior to admission. Reports it has happened in the past with heavy lifting but denies hemorrhoids. 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 This report may have been done utilizing a voice recognition system. Attempts have been made to correct errors. However, there may be uncorrected grammatical, spelling, and recognition errors present. GI Consult Note Consult date/time: 12/04/23 10:03 Reason for consult: Acute pancreatitis HPI: This is a pleasant 38 year old male with no significant past medical surgical history who presented to the ER 12/02/2023 with complaints of abdominal pain. GI consulted for acute pancreatitis. Patient's Sehrley was at his bedside throughout the visit. Patient reports abdominal pain started Friday night. Pain was located in the mid epigastric region and was
--- NOTE | 2023-12-04 10:20 | PC.NURSE ---
To GI Lab per [ ], IV [ ]. Report given to [ ].
[2023-12-04 10:31] LABS: Glucose Point of Care 193 mg/dl (65-105)
[2023-12-04 11:26] LABS: Glucose Point of Care 223 mg/dl (65-105)
[2023-12-04 11:47] LABS: Anion Gap 11 mmol/L (4-12); Carbon Dioxide 16 mmol/L (22-30); Chloride 106 mmol/L (98-107); Potassium 3.8 mmol/L (3.4-5.0); Sodium 133 mmol/L (137-145)
[2023-12-04 11:48] LABS: Blood Urea Nitrogen 5 mg/dL (9-20); Calcium 8.5 mg/dL (8.4-10.2); Estimated CRCL calculation 224 ml/min; Estimated Glomerular Filt Rate > 60; Glucose 232 mg/dL (65-110)
[2023-12-04 12:40] LABS: Glucose Point of Care 233 mg/dl (65-105)
[2023-12-04 13:52] LABS: Glucose Point of Care 240 mg/dl (65-105)
[2023-12-04] MEDS: INSULIN GLARGINE (*BKC) 100 UNITS/ML 45 UNITS SUB-Q (14:13)
[2023-12-04] MEDS: LACTATED RINGERS 1,000 ML 150 ML IV CONT ×2 (14:14→21:27)
[2023-12-04 14:28] LABS: Glucose Point of Care 228 mg/dl (65-105)
[2023-12-04] MEDS: INSULIN HUMAN REGULAR (*BKC) 100 UNITS in SODIUM CHLORIDE 0.9% IV 99 ML IV CONT (14:35)
[2023-12-04 15:35] LABS: Glucose Point of Care 242 mg/dl (65-105)
[2023-12-04] MEDS: INSULIN ASPART (*BKC) 100 UNITS/ML SUB-Q ×2 (16:08→20:07)
[2023-12-04 16:14] LABS: Glucose Point of Care 225 mg/dl (65-105)
[2023-12-04 20:17] LABS: Glucose Point of Care 322 mg/dl (65-105)
[2023-12-04] MEDS: hydrALAZINE HCL 20 MG/ML VIAL 10 MG IV PUSH (20:18)
[2023-12-04] MEDS: LABETALOL HCL INJ 100 MG/20 ML VIAL 20 MG IV PUSH (22:33)
[2023-12-04] MEDS: ACETAMINOPHEN 325 MG TABLET 650 MG PO (22:34)
[2023-12-04] MEDS: amLODIPine BESYLATE 10 MG TABLET PO (22:35)
[2023-12-05] VITALS (15 sets, daily range): BP systolic 139–173; BP diastolic 72–91; PULSE 96–119; RESP 16–25; TEMP 36.3–37.4; O2SAT 94–100; BMI 33.8
--- NOTE | 2023-12-05 | ECHO_ITS ---
Patient Info Name: Alexis Dowell Age: 38 years : 1985 Gender: Male Ht: 74 in Wt: 258 lbs BSA: 2.50 m2 HR: 103 bpm BP: 143 / 74 mmHg Heart Rhythm: Tachycardia Technical Quality: Fair Exam Date: 12/05/2023 9:18 AM Exam Location: Echo Lab Patient Status: Inpatient Admit Date: 12/03/2023 Staff Ordering Physician: Zahra Reyez MD Manager Rental: Spenser Fletcher RDCS Attending Provider: Amrik Cohen MD Referring Physician: Aissatou WAITE; Exam Type: CA echo doppler color flow Study Info Indications - HTN, alcholisim, r/o cardiomyopathy Complete two-dimensional, color flow and Doppler transthoracic echocardiogram is performed. Summary 1. Complete two-dimensional, color flow and Doppler transthoracic echocardiogram is performed. 2. Left ventricular chamber dimension is normal. 3. Left ventricular systolic function is hyperdynamic, estimated at >70%. 4. There is moderately increased left ventricular wall thickness. 5. The left ventricular diastolic function is grade I diastolic dysfunction. 6. E/e' 7 is not elevated. 7. There is trace mitral valve regurgitation. 8. No pulmonary hypertension, estimated pulmonary arterial systolic pressure is 20 mmHg. Left Ventricle E/e' 7 is not elevated. Left ventricular chamber dimension is normal. Left ventricular systolic function is hyperdynamic, estimated at >70%. There is moderately increased left ventricular wall thickness. The left ventricular diastolic function is grade I diastolic dysfunction. Right Ventricle Right ventricular systolic function is normal and with normal TAPSE 2.8 cm. Right ventricular chamber dimension is normal. Left Atria Left atrial chamber dimension is normal. Right Atria Right atrial chamber dimension is normal. Aortic Valve The aortic valve is trileaflet. There is no aortic valve stenosis. There is no aortic valve regurgitation. Pulmonic Valve There is no pulmonic regurgitation. Mitral Valve There is no mitral valve stenosis. There is trace mitral valve regurgitation. Tricuspid Valve There is no tricuspid valve regurgitation. No pulmonary hypertension, estimated pulmonary arterial systolic pressure is 20 mmHg. Pericardium/Pleural There is no pericardial effusion. Inferior Vena Cava Normal inferior vena cava with >50% collapse upon inspiration consistent with normal right atrial pressure, 5 mmHg. Aorta The aortic root size at the sinus of Valsalva is normal. Left Ventricular Outflow Tract Name Value Normal LVOT 2D LVOT Diameter 2.2 cm LVOT Doppler LVOT Peak Gradient 14 mmHg LVOT Mean Gradient 8 mmHg LVOT VTI 29 cm LVOT VTI/AV VTI Ratio 0.9 LVOT Stroke Volume 113 ml LVOT CO 12.3 l/min LVOT CI 4.9 l/min/m2 Pulmonic Valve Name Value Normal PV Doppler
[2023-12-05] MEDS: hydrALAZINE HCL 20 MG/ML VIAL 10 MG IV PUSH ×2 (00:25→04:26)
[2023-12-05 04:21] LABS: Basophils Absolute Auto 0.1 K/mm3 (0.0-0.1); Basophils Percent Auto 0.8 % (0.2-1.2); Eosinophils Absolute Auto 0.2 K/mm3 (0-0.3); Eosinophils Percent Auto 2.1 % (0-4.4); Hemoglobin 12.1 g/dL (14.0-18.0); Immature Granulocyte Absolute 0.28 K/mm3 (0.00-0.031); Immature Granulocyte Percent A 3.4 % (0-0.5); Lymphocytes Absolute Auto 1.63 K/mm3 (0.9-3.2); Lymphocytes Percent Auto 19.7 % (18.3-44.2); Mean Corpuscular HGB Conc 34.6 g/dl (32-36); Mean Corpuscular Volume 89.7 fl (80-100); Mean Platelet Volume 10.1 fl (7.4-10.4); Neutrophils Absolute Auto 5.1 K/mm3 (1.3-6.7); Platelet Count Result 139 k/mm3 (150-375); Red Cell Distribution Width 13.4 % (11.5-14.5); White Blood Count 8.3 K/mm3 (4.5-10.0)
[2023-12-05] MEDS: ACETAMINOPHEN 325 MG TABLET 650 MG PO (04:25)
[2023-12-05] MEDS: LACTATED RINGERS 1,000 ML 150 ML IV CONT (04:32)
[2023-12-05 04:36] LABS: Alanine Aminotransferase 60 U/L (6-50); Albumin Level 3.5 g/dL (3.5-5.1); Alkaline Phosphatase 101 U/L (38-126); Anion Gap 15 mmol/L (4-12); Aspartate Amino Transferase 50 U/L (17-59); Blood Urea Nitrogen 5 mg/dL (9-20); Calcium 8.8 mg/dL (8.4-10.2); Carbon Dioxide 18 mmol/L (22-30); Chloride 104 mmol/L (98-107); Estimated CRCL calculation 224 ml/min; Estimated Glomerular Filt Rate > 60; Glucose 233 mg/dL (65-110); Lipase 437 U/L (23-300); Magnesium 1.7 mg/dL (1.6-2.3); Phosphorus 2.6 mg/dL (2.5-4.5); Potassium 3.5 mmol/L (3.4-5.0); Sodium 137 mmol/L (137-145)
[2023-12-05 04:54] LABS: CRP 15.7 mg/dL (<1.0)
[2023-12-05 07:43] LABS: Triglycerides 507 mg/dL (<150)
[2023-12-05] MEDS: INSULIN ASPART (*BKC) 100 UNITS/ML SUB-Q ×5 (08:01→21:02)
[2023-12-05] MEDS: ENOXAPARIN 40 MG/0.4 ML SYRINGE SUB-Q (08:02)
[2023-12-05] MEDS: INSULIN GLARGINE (*BKC) 100 UNITS/ML 55 UNITS SUB-Q (08:02)
[2023-12-05] MEDS: LOSARTAN POTASSIUM 50 MG TABLET PO (08:02)
[2023-12-05] MEDS: amLODIPine BESYLATE 10 MG TABLET PO (08:03)
[2023-12-05 08:10] LABS: Glucose Point of Care 228 mg/dl (65-105)
--- NOTE | 2023-12-05 11:14 | PCFNICU ---
ICU Rounding Note: Pt current nutrition is DBCC. Last recorded weight is 119.5 kg, up from 118.4 kg on admit. Bowel Motility: +BM reported 12/04 Labs Reviewed:TG 507,Cr 0.5,BUN 5, Glu 233 Meds Noted: NovoLog, Lantus, Lovenox Skin: WNL Additional Notes: Patient tolerated clear liquids advancing as tolerated to DBCC diet. Agree with diet orders. Patient has been educated on DBCC diet. Thank you for consult. Following daily in ICU rounds. Will monitor weight, labs, skin, diet orders, meds every 7 days.
--- NOTE | 2023-12-05 11:29 | WPDINTPN ---
Progress Note: A&P Assessment and Plan (1) DKA (diabetic ketoacidosis): Qualifiers: Diabetes mellitus complication detail: without coma Diabetes mellitus type: other specified (including ESTEBAN) Qualified Code(s): E13.10 - Other specified diabetes mellitus with ketoacidosis without coma Code(s): E11.10 - Type 2 diabetes mellitus with ketoacidosis without coma Status: Acute Assessment and Plan: Patient presented with epigastric pain, nausea, vomiting. Anion gap metabolic acidosis, elevated blood sugars, elevated beta hydroxybutyrate. Patient was diagnosed with DKA and new onset diabetes. -received 3 L of IV fluid bolus in the ER, started on insulin infusion a DKA protocol -will give additional IV fluid bolus today 12/04/2023 -12/03: gap closed, will transition to long-acting insulin and sliding scale insulin -will advance diet as tolerated -will increase Lantus (2) Acute pancreatitis: Qualifiers: Acute pancreatitis complication: unspecified Pancreatitis type: unspecified pancreatitis type Qualified Code(s): K85.90 - Acute pancreatitis without necrosis or infection, unspecified Code(s): K85.90 - Acute pancreatitis without necrosis or infection, unspecified Status: Acute Assessment and Plan: Acute pancreatitis likely related to alcohol and hypertriglyceridemia -will give additional IV fluids and start maintenance IV fluids -lipase trending down well -pain control with morphine -appreciate GI evaluation and recommendations -patient is tolerating clear liquid diet, will advance as tolerated -s (3) Hypertriglyceridemia: Code(s): E78.1 - Pure hyperglyceridemia Status: Acute Assessment and Plan: Hypertriglyceridemia which may be causing the pancreatitis to along with alcohol use -adequately fluid-resuscitated, triglyceride levels trending down -start patient on fenofibrate and statin as his cholesterol is also elevated (4) New onset type 1 diabetes mellitus, uncontrolled: Status: Acute Assessment and Plan: New onset diabetes -hemoglobin A1c > 14 on this admission -will have life skills educator and dietitian evaluate the patient -currently on Lantus and high-dose sliding scale (5) Electrolyte imbalance: Code(s): E87.8 - Other disorders of electrolyte and fluid balance, not elsewhere classified Status: Acute Assessment and Plan: Electrolytes within normal limits (6) Alcohol abuse: Code(s): F10.10 - Alcohol abuse, uncomplicated Status: Acute Assessment and Plan: Patient states he drinks about 8 beers a day -have counseled patient on cessation of alcohol abuse which probably is also cause of his pancreatitis -patient stated that he is going to quit alcohol all that is going on this admission -monitor for alcohol withdrawal -started patient on Librium Plan DVT prophylaxis: Lovenox Stress ulcer prophylaxis: Not indicated Nutrition: Clear liquid diet, advanced as tolerated Code Status: Full code Critical Care Time Spent: 32 minutes Discussed with patient updated him with his condition and plan of care. Patient may transfer out of the ICU Due to a high probability of clinically significant, life threatening deterioration, the patient required my highest level of preparedness to intervene emergently and I personally spent this critical care time directly and personally managing the patient. This critical care time included obtaining a history; examining the patient; pulse oximetry; ordering and review of studies; arranging urgent treatment with development of a management plan; evaluation of patient's response to treatment; frequent reassessment; and discussions with other providers. It was exclusive of separately billable procedures and treating other patients and teaching time. Please see Assessment and Plan section and the rest of the note for further information on patient assessment and treatment Th
[2023-12-05] MEDS: chlordiazePOXIDE (*CRX) 25 MG CAPSULE PO ×2 (11:37→16:53)
[2023-12-05] MEDS: FENOFIBRATE 160 MG TABLET PO (11:39)
[2023-12-05 11:49] LABS: Glucose Point of Care 274 mg/dl (65-105)
--- NOTE | 2023-12-05 13:58 | PC.NURSE ---
This patient, Alexis Dowell, was transferred to [facility] on 12/05/23 at 1340. Personal belongings sent with patient. Report given to Jack. Appropriate documentation sent with patient.
--- NOTE | 2023-12-05 14:42 | PC.NURSE ---
This patient, Alexis Dowell, was received from [ICU-3 ] on 12/05/23 at 13:45. Patient/family oriented to unit policies and routines. No concerns from family at this time.
--- NOTE | 2023-12-05 14:53 | WPDGIPROGNO ---
Progress Note: A&P Assessment and Plan (1) Acute pancreatitis: Qualifiers: Acute pancreatitis complication: unspecified Pancreatitis type: unspecified pancreatitis type Qualified Code(s): K85.90 - Acute pancreatitis without necrosis or infection, unspecified Code(s): K85.90 - Acute pancreatitis without necrosis or infection, unspecified Status: Acute Assessment and Plan: from hyperTG, also he uses alcohol clinically much better and tolerating diet will follow as needed (2) Alcohol abuse: Code(s): F10.10 - Alcohol abuse, uncomplicated Status: Acute Assessment and Plan: he will stop drinking (3) Hypertriglyceridemia: Code(s): E78.1 - Pure hyperglyceridemia Status: Acute Assessment and Plan: new diagnosis of DM and cholesterol started on medication and diet (4) New onset type 1 diabetes mellitus, uncontrolled: Status: Acute Assessment and Plan: AG closed on insulin by primary team (5) Hepatic steatosis: Code(s): K76.0 - Fatty (change of) liver, not elsewhere classified Status: Acute (6) DKA (diabetic ketoacidosis): Qualifiers: Diabetes mellitus complication detail: without coma Diabetes mellitus type: other specified (including ESTEBAN) Qualified Code(s): E13.10 - Other specified diabetes mellitus with ketoacidosis without coma Code(s): E11.10 - Type 2 diabetes mellitus with ketoacidosis without coma Status: Acute Subjective Date/time seen: 12/05/23 14:53 Interval history: no more pain and tolerating solid diet Review of Systems Review of Systems: All systems reviewed & are unremarkable except as noted in HPI and below Exam Const: General: comfortable and no acute distress HENMT: Face/Nose/Sinus: Normal nares present Eyes: General: appearance normal, both eyes and all related structures Neck: Neck: no JVD Resp: Auscultation: clear to auscultation bilaterally Cardio: Rate: regular rate Rhythm: regular rhythm GI: Inspection: non-distended GI Palp: Yes Soft to palpation and No Tenderness to palpation present (GI) Auscultation: normal bowel sounds Skin: General skin exam: normal color Neuro: Speech: normal speech Motor exam (neuro): 5/5 motor strength present throughout Extrem: General: normal to inspection Psych: Mental Status: mental status grossly normal Objective Data Vital Signs Vital Signs: Vital Signs - 24 hr 12/04/23 16:00 12/04/23 16:00 12/04/23 18:00 Temperature Pulse Rate 112 H 113 H 113 H Pulse Rate [Bilateral Pedal (Dorsalis Pedis)] Pulse Rate [Monitor] Respiratory Rate 18 Blood Pressure Pulse Oximetry 98 Oxygen Delivery Room Air 12/04/23 18:00 12/04/23 20:00 12/04/23 20:00 Temperature 99.6 F Pulse Rate 113 H 115 H Pulse Rate [Bilateral Pedal (Dorsalis Pedis)] 105 H Pulse Rate [Monitor] 105 H Respiratory Rate 20 20 Blood Pressure 169/103 H Pulse Oximetry 99 98 Oxygen Delivery 12/04/23 20:30 12/04/23 22:00 12/04/23 22:33 Temperature Pulse Rate 110 H 110 H 109 H Pulse Rate [Bilateral Pedal (Dorsalis Pedis)] Pulse Rate [Monitor] Respiratory Rate 23 H 27 H Blood Pressure 173/101 H 184/95 H Pulse Oximetry 98 97 Oxygen Delivery 12/04/23 20:00 12/04/23 22:00 12/04/23 23:00 Temperature Pulse Rate 109 H 110 H Pulse Rate [Bilateral Pedal (Dorsalis Pedis)] Pulse Rate [Monitor] Respiratory Rate Blood Pressure 171/94 H Pulse Oximetry Oxygen Delivery 12/04/23 23:30 12/04/23 22:30 12/05/23 00:00 Temperature Pulse Rate Pulse Rate [Bilateral Pedal (Dorsalis Pedis)] 106 H Pulse Rate [Monitor] Respiratory Rate Blood Pressure 149/83 H 176/99 H 173/91 H Pulse Oximetry Oxygen Delivery 12/05/23 00:00 12/05/23 00:00 12/05/23 01:00 Temperature 99.4 F Pulse Rate 106 H 104 H Pulse Rate [Bilateral Pedal (Dorsalis Pedis)] Pulse Rate [Monitor]
[2023-12-05 16:43] LABS: Glucose Point of Care 200 mg/dl (65-105)
--- NOTE | 2023-12-05 17:09 | PM.IMPN ---
Progress Note: A&P Assessment and Plan (1) DKA (diabetic ketoacidosis): Qualifiers: Diabetes mellitus complication detail: without coma Diabetes mellitus type: other specified (including ESTEBAN) Qualified Code(s): E13.10 - Other specified diabetes mellitus with ketoacidosis without coma Code(s): E11.10 - Type 2 diabetes mellitus with ketoacidosis without coma Status: Acute Assessment and Plan: Patient presented with epigastric pain, nausea, vomiting. Anion gap metabolic acidosis, elevated blood sugars, elevated beta hydroxybutyrate. Patient was diagnosed with DKA and new onset diabetes. s/p insulin infusion adn IVF per DKA protocol on Lantus 55un, 5 u lispro premeal and SSI with accucheks monitor (2) Acute pancreatitis: Qualifiers: Acute pancreatitis complication: unspecified Pancreatitis type: unspecified pancreatitis type Qualified Code(s): K85.90 - Acute pancreatitis without necrosis or infection, unspecified Code(s): K85.90 - Acute pancreatitis without necrosis or infection, unspecified Status: Acute Assessment and Plan: Acute pancreatitis likely related to alcohol and hypertriglyceridemia tolerating diet continue fenofibrates and statin TG >2625 and drinks alcohol couneled about alcohol cessation (3) Hypertriglyceridemia: Code(s): E78.1 - Pure hyperglyceridemia Status: Acute Assessment and Plan: Hypertriglyceridemia which may be causing the pancreatitis to along with alcohol use continue above care (4) New onset type 1 diabetes mellitus, uncontrolled: Status: Acute Assessment and Plan: New onset diabetes -hemoglobin A1c > 14 on this admission -will have grinding room inspector and dietitian evaluate the patient -currently on Lantus and high-dose sliding scale (5) Electrolyte imbalance: Code(s): E87.8 - Other disorders of electrolyte and fluid balance, not elsewhere classified Status: Acute Assessment and Plan: Electrolytes within normal limits (6) Alcohol abuse: Code(s): F10.10 - Alcohol abuse, uncomplicated Status: Acute Assessment and Plan: Patient states he drinks about 8 beers a day -have counseled patient on cessation of alcohol abuse which probably is also cause of his pancreatitis -patient stated that he is going to quit alcohol all that is going on this admission -monitor for alcohol withdrawal -started patient on Librium Plan DVT prophylaxis: Lovenox Stress ulcer prophylaxis: Not indicated Nutrition: Clear liquid diet, advanced as tolerated Code Status: Full code Care plan discussed with sarahi cano This dictation may have been done utilizing a voice recognition system. Attempts have been made to correct errors. However, there may be uncorrected grammatical, spelling, and recognitions errors present. Subjective Date/time seen: 12/05/23 17:09 Interval history: comfortable at bedside Review of Systems Review of Systems: All systems reviewed & are unremarkable except as noted in HPI and below Exam Narrative: General: Pleasant gentleman in no acute distress HEENT:? Pupils equal and reactive, steroids clear, moist oral mucosa Neck:? Supple, thick neck Respiratory:? Clear to auscultation bilaterally, no wheezing, adequate air entry Cardiac:? S1-S2 is normal, sinus tachycardia Abdomen:? Soft, obese, normoactive bowel sounds, epigastric tenderness significantly improved Extremities:? No edema, bilateral lower extremity pedal pulses are palpable, extremities are warm Neuro:? Patient is awake, alert, oriented x3, nonfocal Skin:? No skin lesions noted Psych:? Normal mentation affect Objective Data Vital Signs Vital Signs: Vital Signs - 24 hr 12/04/23 18:00 12/04/23 18:00 12/04/23 20:00 Temperature Pulse Rate 113 H 113 H Pulse Rate [Bilateral Pedal (Dorsalis Pedis)] 105 H Pulse Rate [Monitor] 105 H Respiratory Rate 20 Blood Pressure P
[2023-12-05 20:09] LABS: Glucose Point of Care 243 mg/dl (65-105)
[2023-12-05] MEDS: ATORVASTATIN 40 MG TABLET PO (21:05)
[2023-12-06] VITALS: BP 128/78; PULSE 104; PULSE 88
[2023-12-06] MEDS: chlordiazePOXIDE (*CRX) 25 MG CAPSULE PO ×3 (00:46→12:00)
[2023-12-06 04:00] VITALS: BP 150/87; PULSE 88; PULSE 98
[2023-12-06 05:46] VITALS: BP 150/87; PULSE 94; RESP 16; TEMP 37.2; O2SAT 98
[2023-12-06 06:21] LABS: Basophils Absolute Auto 0.1 K/mm3 (0.0-0.1); Basophils Percent Auto 1.1 % (0.2-1.2); Eosinophils Absolute Auto 0.2 K/mm3 (0-0.3); Eosinophils Percent Auto 1.9 % (0-4.4); Hematocrit 37.1 % (42.0-52.0); Hemoglobin 12.5 g/dL (14.0-18.0); Immature Granulocyte Absolute 0.48 K/mm3 (0.00-0.031); Immature Granulocyte Percent A 4.8 % (0-0.5); Mean Corpuscular HGB Conc 33.7 g/dl (32-36); Mean Corpuscular Hemoglobin 30.6 pg (26-34); Mean Corpuscular Volume 90.7 fl (80-100); Mean Platelet Volume 10.1 fl (7.4-10.4); Monocytes Absolute Auto 1.1 K/mm3 (0.1-0.6); Monocytes Percent Auto 11.4 % (2.6-8.5); Neutrophils Absolute Auto 5.5 K/mm3 (1.3-6.7); Neutrophils Percent Auto 54.8 % (45.5-73.1); Platelet Count Result 168 k/mm3 (150-375); Red Blood Count 4.09 M/mm3 (4.6-6.20); Red Cell Distribution Width 13.2 % (11.5-14.5)
[2023-12-06 06:34] LABS: Alanine Aminotransferase 50 U/L (6-50); Albumin Level 3.4 g/dL (3.5-5.1); Alkaline Phosphatase 98 U/L (38-126); Anion Gap 9 mmol/L (4-12); Aspartate Amino Transferase 43 U/L (17-59); Bilirubin,Total 0.8 mg/dL (0.2-1.3); Blood Urea Nitrogen 9 mg/dL (9-20); CRP 7.6 mg/dL (<1.0); Carbon Dioxide 28 mmol/L (22-30); Chloride 99 mmol/L (98-107); Estimated CRCL calculation 191 ml/min; Estimated Glomerular Filt Rate > 60; Glucose 211 mg/dL (65-110); HDL Direct 21 mg/dL; Lipase 402 U/L (23-300); Magnesium 1.9 mg/dL (1.6-2.3); Phosphorus 3.3 mg/dL (2.5-4.5); Potassium 3.1 mmol/L (3.4-5.0); Sodium 136 mmol/L (137-145); Triglycerides 422 mg/dL (<150)
[2023-12-06 06:40] LABS: Cholesterol 389 mg/dL (0-200); LDL Cholesterol Direct 140 mg/dL
[2023-12-06 08:00] VITALS: PULSE 100
[2023-12-06 08:21] LABS: Glucose Point of Care 225 mg/dl (65-105)
[2023-12-06] MEDS: INSULIN GLARGINE (*BKC) 100 UNITS/ML 55 UNITS SUB-Q (08:35)
[2023-12-06] MEDS: INSULIN ASPART (*BKC) 100 UNITS/ML SUB-Q ×4 (08:36→11:59)
[2023-12-06] MEDS: amLODIPine BESYLATE 10 MG TABLET PO (08:37)
[2023-12-06] MEDS: LOSARTAN POTASSIUM 50 MG TABLET PO (08:37)
[2023-12-06] MEDS: FENOFIBRATE 160 MG TABLET PO (08:37)
[2023-12-06] MEDS: ENOXAPARIN 40 MG/0.4 ML SYRINGE SUB-Q (08:38)
[2023-12-06] MEDS: hydroCHLOROthiazide 12.5 MG CAPSULE PO (08:42)
--- NOTE | 2023-12-06 11:27 | PM.DS ---
DS: Admitting Diagnosis Discharge Date 12/06/23 Admitting Diagnosis DKA hypertension DS: Discharge Diagnosis Discharge Diagnosis (1) DKA (diabetic ketoacidosis): Qualifiers: Diabetes mellitus complication detail: without coma Diabetes mellitus type: other specified (including ESTEBAN) Qualified Code(s): E13.10 - Other specified diabetes mellitus with ketoacidosis without coma Code(s): E11.10 - Type 2 diabetes mellitus with ketoacidosis without coma Status: Acute (2) Alcohol abuse: Code(s): F10.10 - Alcohol abuse, uncomplicated Status: Acute DS: Summary Hospital Course Hospital Course: This is a 38-year-old male with no significant past medical history except for chronic alcohol use presents to the as abdominal pain sharp burning in quality since Friday. Somewhat radiated to bilateral lumbar area not associated with nausea and vomiting. He noted that to go he had constipated stool with some bright red blood around the stool. Also reported some fever to the ER complaints. He reports drinking heavily on Friday noted to be tachycardic in 1 teens to 120s. WBC count 15.3 hemoglobin 60. Dialysis was negative for UTI laboratory studies showed hyponatremia 130 hyperkalemia 5.4 carbon dioxide less than 5 404 calcium of 11.3 left TS within normal limit. Lipase level was elevated at 508 7.24/15/85/6.5. Abdominal pelvis CT scan was done which showed hepatomegaly with steatosis and acute interstitial pancreatitis. He was diagnosed with acute pancreatitis and acute DKA. Patient has been started on IV fluids with insulin drip. He is admitted to ICU in the setting. He reports he has been feeling better Since arrival to the ED. Patient was managed for DKA new onset DM, hypertension, acute pancreatitis and alcohol withdrawal. patient is now tolerating diet, on Lipitor and fenofibrate for hypertriglyceridemia. Discharged on Lantus 55u, Lispro 5 u premeal, and SSI with accucheks. A1c >14. discharged on losartan, HCTZ, Amlodipine, and Isosorbide mononitrate. discharged on PRN librium x 3 days F/u with PCP in 3-5 days Topical management Assessment and Plan (1) DKA (diabetic ketoacidosis): Qualifiers: Diabetes mellitus complication detail: without coma Diabetes mellitus type: other specified (including ESTEBAN) Qualified Code(s): E13.10 - Other specified diabetes mellitus with ketoacidosis without coma Code(s): E11.10 - Type 2 diabetes mellitus with ketoacidosis without coma Status: Acute Assessment and Plan: Patient presented with epigastric pain, nausea, vomiting. Anion gap metabolic acidosis, elevated blood sugars, elevated beta hydroxybutyrate. Patient was diagnosed with DKA and new onset diabetes. s/p insulin infusion adn IVF per DKA protocol on Lantus 55un, 5 u lispro premeal and SSI with accucheks f/u with PCP in 3-5 days (2) Acute pancreatitis: Qualifiers: Acute pancreatitis complication: unspecified Pancreatitis type: unspecified pancreatitis type Qualified Code(s): K85.90 - Acute pancreatitis without necrosis or infection, unspecified Code(s): K85.90 - Acute pancreatitis without necrosis or infection, unspecified Status: Acute Assessment and Plan: Acute pancreatitis likely related to alcohol and hypertriglyceridemia tolerating diet continue fenofibrates and statin TG >2625 and drinks alcohol counseled about alcohol cessation (3) Hypertriglyceridemia: Code(s): E78.1 - Pure hyperglyceridemia Status: Acute Assessment and Plan: Hypertriglyceridemia which may be causing the pancreatitis to along with alcohol use continue above care (4) New onset type 1 diabetes mellitus, uncontrolled: Status: Acute Assessment and Plan: New onset diabetes -hemoglobin A1c > 14 on this admission -will have certified diabetes educator and dietitian evaluate the patient -currently on Lantus and high-dose
[2023-12-06 12:00] LABS: Glucose Point of Care 239 mg/dl (65-105)
--- NOTE | 2023-12-12 15:46 | PCCDE ---
12/12/23 3:00-3:35 PM ? Followed up with patient by phone s/p DKA hospital admission, new Type 1 DM Dx. Alexis asking relevant questions, answered to his satisfaction. Has appt with new Primary HCP 01/07/24 (reportedly earliest he could get). Has researched endocrinologists and will get referral for one in [place]. SMBG seeing significantly improved numbers since hospitalization ranging 150-210?s. Downloaded and using [employer] lydia. Taking insulin as Rx?d. (basal/bolus) Has a rotation schedule. Has resumed working out with aed trainer (discussed not injecting in leg shortly prior to leg exercise) as well as tips to avoid hypoglycemia. Is focusing on ?healthy eating?. Per conversation occas. over-restricting carbs ? discussed ADA recommendation > 130 gm CHO daily (broken out into meals) Pt has our OP DSMT/MNT information. Will talk with HCP re: referral. [facility]
== END 2023-12-06 12:15 | disposition home or self-care (01) | DRG 438 ==
LOC: ANHED 13:43 → ANHICU 17:47 → ANH3MEDSUR 12-06 11:26 → ANHICU 12-09 09:39
PROVIDERS: Emergency Medicine; General Practice; Internal Medicine; Nurse Practitioner; Admitting Provider Student in an Organized Health Care Education/Training Program; Emergency Provider Preventive Medicine Aerospace Medicine; Visit Provider Internal Medicine
DX: K85.20 Alcohol induced acute pancreatitis without necrosis or infection (principal); E13.10 Other specified diabetes mellitus with ketoacidosis without coma; E87.1 Hypo-osmolality and hyponatremia; K92.1 Melena; F10.139 Alcohol abuse with withdrawal, unspecified; K85.80 Other acute pancreatitis without necrosis or infection; F17.290 Nicotine dependence, other tobacco product, uncomplicated; I10 Essential (primary) hypertension; E87.5 Hyperkalemia; E83.52 Hypercalcemia; D72.829 Elevated white blood cell count, unspecified; E78.1 Pure hyperglyceridemia; K76.0 Fatty (change of) liver, not elsewhere classified
CPT/HCPCS: 36415; 74177; 80048; 80053; 80061; 81001; 82010; 82803; 82948; 83036; 83605; 83690; 83735; 84100; 84478; 85025; 85055; 85610; 85730; 86140; 87040; 93306; 96361; 96375; 99285; A9270; G0378; J0360; J0692; J1650; J1815; J2270; J2405; J3411; J3480; J7030; J7050; J7120; Q9967